=== PATIENT | male | born 1960 | race Caucasian/White ===

== ENCOUNTER → 2022-10-04 08:50 | Outpatient (BNVA) | payer BC, OTHER, SELFPAY | PROVIDERS: PCP Internal Medicine; Visit Provider Dietitian, Registered | DX: E11.9 Type 2 diabetes mellitus without complications (principal) | CPT/HCPCS: 97802 ==

== ENCOUNTER → 2022-11-29 11:32 | Outpatient (BNVA) | payer BC, OTHER, SELFPAY | PROVIDERS: PCP Internal Medicine; Visit Provider Dietitian, Registered | DX: E11.9 Type 2 diabetes mellitus without complications (principal) | CPT/HCPCS: 97803 ==

== ENCOUNTER 2023-01-31 09:00 | Outpatient (AMB) | payer BC, OTHER, SELFPAY ==
[2023-01-31 09:19] VITALS: BMI 34.6
--- NOTE | 2023-01-31 09:19 | A.OFFVIS_ITS ---
Intake VS Expanded 01/31/23 09:19 Height 5 ft 9 in Weight 234 lb 5.622 oz BMI 34.6 Intake Visit Reasons: T2DM HPI Nutrition Presentation Details Pt presents for MNT for T2DM Pt reports he is on insulin with meal on a sliding scale. Pt reports using sliding scale as prescribed by his doctor. Pt admits not making diet modifications. Typical meal: B: 2 slices of white bread with scrambled eggs, orange juice, then at [employer] coffee with milk diet sugar, snack :harmon and hashbrown L: chips ,water or cheddar popcorn-typically choosing vending machine snacks Dinner: Pt reports eating out to eat in the evening, prime rib dinner with ba ked potato (salt) with a salad , burger , fries or shepherds pie . Meals are fast food/re[employer]urant/fam style rest Most Recent Diabetes Results: No Data to Display Assessment & Plan Assessment & Plan (1) T2DM (type 2 diabetes mellitus): Code(s): E11.9 - Type 2 diabetes mellitus without complications Plan: Dx: Excessive calorie intake from high fat/carb sources of foods as evidenced by food recall, dx of t2dm Educate Pt on reduction following healthy plate method . ? Pt's set goal (Date:10/04/22 ): Reduce intake of fried starches at lunch and dinner at follow up (Date:12/06/22 ): met 25% at f/u 01/31/23: met 25% Used wt : 100 kg ( 106 kg on 01/31/23) Est kcal as per MSJ: 2470 (40% carb, 30% fat/prot) Est fluid needs: 2500 ml/d (25 ml/kg bw) Rec fiber: increase to 8-10 g per day and gradually increase to 35 gor as tolerated Rec Na: < 2000 mg /d Educate patient on: (R= Reviewed, V = verbalizes understanding N/R= Needs review N/A= not applicable) * Food sources of carbohydrates and serving adequate serving sizes : R v * Difference between complex carbohydrates and simple carbohydrates, role of fiber: R V * Differences between fats (MUFA/PUFA/saturated fats, trans fats) and food sources of various fats: R (basic info) * Food sources of sodium and salt and healthy modifications for heart health and kidney health: N/R * Vitamins and minerals: N/R * How to interpret food labels: R (carbs/fiber/serving size) * Healthy Plate method concept: R * Physical activity: benefits and precaution: R * Reviewed relationship of food, blood sugar and weight : R Patient Instructions: Reduce on portion of meal at dinner - ask for a container to go save half for lunch the next day keep a food record with food portion sizes and time of day, bring to next f/u for review Coding Level of Care Code Nutr Indiv Subseq ([id number]) Diagnoses T2DM (type 2 diabetes mellitus) E11.9 Time Spent (min) 20
== END 2023-01-31 10:04 | disposition home or self-care (01) ==
PROVIDERS: PCP Internal Medicine; Visit Provider Dietitian, Registered
DX: E11.9 Type 2 diabetes mellitus without complications (principal)

== ENCOUNTER → 2023-01-31 09:00 | Outpatient (BNVA) | payer BC, OTHER, SELFPAY | PROVIDERS: PCP Internal Medicine; Visit Provider Dietitian, Registered | DX: E11.9 Type 2 diabetes mellitus without complications (principal); E66.3 Overweight; Z68.34 Body mass index [BMI] 34.0-34.9, adult; Z71.3 Dietary counseling and surveillance | CPT/HCPCS: 97803 ==

== ENCOUNTER 2025-06-10 09:42 | Outpatient (AMB) | payer MEDICARE, OTHER, SELFPAY ==
--- NOTE | 2025-06-10 09:45 | MHC.OFFVIS ---
Intake Visit Reasons: 1 Yr follow up HPI Comments Details: 65 years old right-handed man with past medical history of coronary artery disease status post stenting and obstructive sleep apnea and using CPAP was here with mild cognitive impairment with symptom of forgetfulness. He is presenting with pain on the plantar aspect of his feet. He states this symptom had previously resolved but recurred after walking for an extended period in poor footwear. He believes his right foot may be more affected. He has a history of edema in his shins, which resolved after taking a diuretic. The patient also reports a history of a knee trigger . The patient has diabetes mellitus and is on insulin, which he takes regularly. He acknowledges his blood sugar is not well-regulated, with postprandial spikes. He has experienced morning hypoglycemia with readings as low as 67-88 mg/dL, and his highest readings are under 300 mg/dL. Review of Systems Narrative - Neurological: Reports pain on the plantar aspect of the feet, possibly worse on the right. - Endocrine: Reports inadequately controlled blood glucose with episodes of both hypoglycemia and hyperglycemia. - Cardiovascular: Reports a history of resolved edema in the shins. - Musculoskeletal: Reports a knee trigger . Physical Exam Neuro Other: Mental Status: Alert and oriented to person, place, and time. Normal attention. Normal spontaneous speech, fluency, and comprehension. No obvious issues with mood and memory. Affect is appropriate. Cranial Nerves: CN II: Visual santa full to confrontation, visual acuity intact. CN III, IV, : Pupils equal, round, reactive to light and accommodation. Extraocular movements are normal. CN V: Facial sensation is normal. CN VII: Facial movements symmetrical. CN VIII: Hearing intact to bedside conversation is normal. CN IX, X: Palate elevates symmetrically. CN XI: Shoulder shrug and head turn symmetrical. CN XII: Tongue midline without atrophy or fasciculations. Motor: Bulk and tone normal in all extremities. No significant muscle weakness in arms and legs. No drift. Reflexes: DTRs are absent Coordination: [id number] is ok Gait and Station: No obvious gait abnormality. No ataxia or instability. Extrapyramidal: Full facial expressions and blinking. No rigidity. Movements are appropriate with no tremor or abnormality. Speech: Normal; no dysarthria or tremor. Assessment & Plan Assessment & Plan (1) MCI (mild cognitive impairment): Comment: Neuropsychological eval at off in May 2024: OK. Code(s): G31.84 - Mild cognitive impairment of uncertain or unknown etiology Category: Medical (2) Peripheral neuropathy: Code(s): G62.9 - Polyneuropathy, unspecified Category: Medical Qualifiers: Peripheral neuropathy type: polyneuropathy, unspecified Qualified Code(s): G62.9 - Polyneuropathy, unspecified Plan Impression: 1. Mild cognitive impairment of forgetfulness type 2. Probably diabetic peripheral neuropathy 3. Relatively uncontrolled diabetes 4. Moderate obesity 5. Obstructive sleep apnea treated with CPAP Recommendations: 1. EMG nerve conduction study right foot and leg 2. Stay physically active and tried to lose weight I discussed with the patient that his foot pain is likely due to neuropathy from his diabetes. We reviewed his blood sugar management, acknowledging his adherence to insulin but also noting the ongoing suboptimal control. I explained that better sugar regulation is blood to managing his nerve-related symptoms, and we initiated a plan to address this. Orders: Orders NE electromyogram (EMG) Today G62.9 - Polyneuropathy, unspecified NE nerve conduction velocity Today G62.9 - Polyneuropathy, unspecified Coding Level of Care Code Est Pt Level 4 (75781) Diagnoses MCI (mild cognitive impairment) G31.84 Peripheral polyneuropathy G62.9 Peripheral neuropathy type: polyneuropathy, unspecified
== END 2025-06-10 10:04 | disposition home or self-care (01) ==
PROVIDERS: Family Provider Internal Medicine Endocrinology, Diabetes & Metabolism; PCP Internal Medicine; Visit Provider Psychiatry & Neurology Neurology
DX: G31.84 Mild cognitive impairment of uncertain or unknown etiology (principal); G62.9 Polyneuropathy, unspecified
CPT/HCPCS: 99214

== ENCOUNTER → 2025-06-10 09:42 | Outpatient (BNVA) | payer MEDICARE, SELFPAY | PROVIDERS: Family Provider Internal Medicine Endocrinology, Diabetes & Metabolism; PCP Internal Medicine; Visit Provider Psychiatry & Neurology Neurology | DX: G31.84 Mild cognitive impairment of uncertain or unknown etiology (principal); G62.9 Polyneuropathy, unspecified | CPT/HCPCS: 99212 ==